=== PATIENT | male | born 1965 | race Caucasian/White ===

== ENCOUNTER 2016-09-23 14:04 | Emergency (ER) | payer OTHER ==
[2016-09-23 17:51] VITALS: BP 134/94
== END 2016-09-23 17:51 | disposition home or self-care (01) ==
LOC: ED 14:04
DX: M54.6 Pain in thoracic spine (principal); M47.894 Other spondylosis, thoracic region; F32.9 Major depressive disorder, single episode, unspecified; E78.00 Pure hypercholesterolemia, unspecified; E66.9 Obesity, unspecified; G47.00 Insomnia, unspecified
CPT/HCPCS: 72072; J1100; J1885

== ENCOUNTER 2017-01-03 12:17 | Emergency (ER) | payer OTHER ==
[2017-01-03 16:13] VITALS: BP 131/78
== END 2017-01-03 16:14 | disposition home or self-care (01) ==
LOC: ED 12:17
DX: R11.2 Nausea with vomiting, unspecified (principal); R19.7 Diarrhea, unspecified; M79.1 Myalgia
CPT/HCPCS: J1885; Q0162